=== PATIENT | male | born 1990 | race African-American/Black ===

== ENCOUNTER 2019-05-20 12:22 | Emergency (ER) | payer MEDICAID ==
[~2019-05-20] VITALS: Ht 175.3 cm; Wt 82.6 kg
[2019-05-20 13:02] VITALS: BP 121/71
== END 2019-05-20 13:40 | disposition home or self-care (01) ==
LOC: ER 12:23
DX: S62.622A Displaced fracture of middle phalanx of right middle finger, initial encounter for closed fracture (principal); F17.210 Nicotine dependence, cigarettes, uncomplicated; X50.1XXA Overexertion from prolonged static or awkward postures, initial encounter; Y93.67 Activity, basketball; Y92.39 Other specified sports and athletic area as the place of occurrence of the external cause; Y99.8 Other external cause status
CPT/HCPCS: 29130; 73140